=== PATIENT | female | born 1990 | race Two or more races ===

== ENCOUNTER 2023-06-28 19:27 | Inpatient (IN) | payer MEDICAID ==
[~2023-06-28] VITALS: Ht 170.2 cm; Wt 68.9 kg
[2023-06-28 20:18] VITALS: BP 116/68; PULSE 77; RESP 18; TEMP 98.6
[2023-06-28] MEDS ORDERED: ONDANSETRON 4 MG/2 ML VIAL IVP PRN (20:25)
[2023-06-28] MEDS ORDERED: AMPICILLIN 2,000 MG in NACL 0.9% MINI-BAG PLUS 100 ML IV SCH (20:25)
[2023-06-28] MEDS ORDERED: CARBOPROST 250 MCG/ML AMP IM PRN (20:25)
[2023-06-28] MEDS ORDERED: METHYLERGONOVINE 0.2 MG/ML AMP IM PRN (20:25)
[2023-06-28] MEDS ORDERED: MISOPROSTOL 25 MCG TAB VG PRN (20:25)
[2023-06-28] MEDS ORDERED: LACTATED RINGERS 1,000 ML IV SCH (20:25)
[2023-06-28] MEDS ORDERED: MORPHINE SULFATE 10 MG/ML VIAL IVP PRN (20:25)
[2023-06-28 21:09] LABS: BASOPHILS % (AUTO) 0.2 % (0.0-2.0); EOSINOPHILS % (AUTO) 0.5 % (0.0-4.0); HEMATOCRIT 34.9 % (36-48); HEMOGLOBIN 12.1 g/dL (12.0-16.0); LYMPHOCYTES # (AUTO) 1.3 K/uL (2.5-16.5); LYMPHOCYTES % (AUTO) 13.9 % (20.5-51.1); MEAN CORPUSCULAR HEMOGLOBIN 32 pg (27-31); MEAN CORPUSCULAR HGB CONC 35 g/dL (33-37); MEAN CORPUSCULAR VOLUME 91.9 fL (80-94); MONOCYTES # (AUTO) 0.6 K/uL (0.8-1.0); MONOCYTES % (AUTO) 7.1 % (1.7-9.3); NEUTROPHILS # (AUTO) 7.1 K/uL (1.8-7.7); NEUTROPHILS % (AUTO) 78.3 % (42.2-75.2); PLATELET COUNT (AUTO) 265 K/uL (140-450); RED CELL DISTRIBUTION WIDTH 13.3 % (11.6-13.7)
[2023-06-28 21:20] LABS: INR 0.84 (0.8-1.2); PARTIAL THROMBOPLASTIN TIME 26.7 secs (22-35.6); PROTHROMBIN TIME 8.9 secs (10.8-13.4)
[2023-06-28 21:22] LABS: ALBUMIN 2.4 g/dL (3.4-5.0); ANION GAP 12.5 (8-16); CALCIUM 8.8 mg/dL (8.5-10.1); CREATININE 0.6 mg/dL (0.6-1.3); POTASSIUM 3.5 mmol/L (3.5-5.1); TOTAL BILIRUBIN 0.6 mg/dL (0.0-1.0); TOTAL PROTEIN, SERUM 7.2 g/dL (6.4-8.2)
[2023-06-28] MEDS ORDERED: OXYTOCIN 20 UNITS/LR PREMIX 1,000 ML IV ONE (22:37)
[2023-06-28] MEDS ORDERED: AMPICILLIN 2,000 MG VIAL ONE (22:38)
[2023-06-28] MEDS: OXYTOCIN 20 UNITS in LACTATED RINGERS 1,000 ML IV SCH (22:45)
[2023-06-28] MEDS ORDERED: ROPIVACAINE 0.2%/NS PREMIX 200 ML EPI ONE (23:30)
[2023-06-29 02:23] LABS: APPEARANCE,URINE CLEAR (CLEAR); BILIRUBIN,URINE NEGATIVE (NEGATIVE); BLOOD, URINE TRACE-I (NEGATIVE); COLOR,URINE YELLOW (YELLOW); LEUKOCYTE ESTERASE ,URINE NEGATIVE (NEGATIVE); NITRITE, URINE NEGATIVE (NEGATIVE); PROTEIN,URINE NEGATIVE (NEGATIVE); UGLUCOSE NEGATIVE (NEGATIVE); UROBILINOGEN,URINE 0.2 EU/dL (0.2 - 1)
[2023-06-29] MEDS ORDERED: AMPICILLIN 1,000 MG VIAL ONE ×3 (02:36→10:16)
[2023-06-29 02:54] LABS: BACTERIA,URINE OCCASSIONAL /HPF (None Seen); WBC,URINE 0-5 /HPF (0-5)
[2023-06-29 02:55] LABS: MUCUS,URINE 1+ /LPF (None Seen); RBC,URINE 0-5 /HPF (0-5); SQUAMOUS EPITHELIAL CELL,UR 4-10 (MOD) /LPF (0-3 (FEW))
[2023-06-29] MEDS: AMPICILLIN 1,000 MG in NACL 0.9% MINI-BAG PLUS 50 ML IV SCH ×2 (02:56→07:00)
[2023-06-29] MEDS: OXYTOCIN 20 UNITS in LACTATED RINGERS 1,000 ML IV SCH (14:19)
[2023-06-29] MEDS ORDERED: OXYTOCIN 10 UNITS/ML VIAL IM PRN (17:50)
[2023-06-29] MEDS ORDERED: BENZOCAINE/MENTHOL 20%-0.5% 60 GM CAN TP PRN (17:50)
[2023-06-29] MEDS ORDERED: MEASLES, MUMPS, AND RUBELLA 1 VIAL SQVAC ONE (17:50)
[2023-06-29] MEDS ORDERED: IBUPROFEN 800 MG TAB PO PRN (17:50)
[2023-06-29] MEDS ORDERED: METHYLERGONOVINE 0.2 MG/ML AMP IM PRN (17:50)
[2023-06-29] MEDS ORDERED: METHYLERGONOVINE 0.2 MG TAB PO PRN (17:50)
[2023-06-30] MEDS ORDERED: FLU VACCINE QS2023-24 0.5 ML SYR IMVAC ONE (00:10)
[2023-06-30 05:56] LABS: HEMATOCRIT 22.2 % (36-48); HEMOGLOBIN 7.5 g/dL (12.0-16.0)
[2023-07-01 09:31] LABS: HEMOGLOBIN 6.4 g/dL (12.0-16.0)
[2023-07-01] MEDS ORDERED: ACETAMINOPHEN 325 MG TAB PO SCH (11:05)
[2023-07-01] MEDS ORDERED: NACL 0.9% 1,000 ML IV ONE (12:50)
[2023-07-01] MEDS ORDERED: NACL 0.9% 1,000 ML IV SCH (13:00)
[2023-07-02 06:15] LABS: HEMATOCRIT 25.9 % (36-48)
== END 2023-07-02 13:45 | disposition home or self-care (01) | DRG 542 ==
LOC: MFCC 19:27
PROVIDERS: ADMIT Obstetrics & Gynecology; ATTEND Obstetrics & Gynecology
PROC: 3E0R3BZ Introduction of Anesthetic Agent into Spinal Canal, Percutaneous Approach (ICD-10-PCS; 2023-06-28)
PROC: 00HU33Z Insertion of Infusion Device into Spinal Canal, Percutaneous Approach (ICD-10-PCS; 2023-06-28)
PROC: 10E0XZZ Delivery of Products of Conception, External Approach (ICD-10-PCS; principal; 2023-06-29)
PROC: 0UQC7ZZ Repair Cervix, Via Natural or Artificial Opening (ICD-10-PCS; 2023-06-29)
PROC: 3E033VJ Introduction of Other Hormone into Peripheral Vein, Percutaneous Approach (ICD-10-PCS; 2023-06-29)
PROC: 30233N1 Transfusion of Nonautologous Red Blood Cells into Peripheral Vein, Percutaneous Approach (ICD-10-PCS; 2023-07-01)
DX: O66.0 Obstructed labor due to shoulder dystocia (principal); Z37.0 Single live birth; O71.3 Obstetric laceration of cervix; Z3A.39 39 weeks gestation of pregnancy; Z20.822 Contact with and (suspected) exposure to COVID-19
CPT/HCPCS: 36415; 51702; 76815; 80053; 81001; 85018; 85025; 85610; 85730; 86592; 86886; 86900; 86901; 86920; 87653-90; 90715; J0290; J2270; J2590; J2795; J7120; P9016; Q0092